=== PATIENT | female | born 1940 | race Caucasian/White ===

== ENCOUNTER 2020-03-21 07:57 | Day surgery (SDC) | payer MEDICARE ==
[~2020-03-21] VITALS: Ht 162.6 cm; Wt 77.3 kg
[~2020-03-21 07:57] MED LIST: ACETAMINOPHEN500 MG PO; BUSPIRONE HCL5 MG PO; ESTRADIOL-NORE1 EACH PO; FENOFIBRATE145 MG PO; HYDROCHLOROTHIA25 MG PO; LISINOPRIL20 MG PO; METOPROLOL TART50 MG PO; NORVASC10 MG PO; OXYCODON-ACETA1 EAC2 PO; ZOLPIDEM TARTRA10 MG PO
--- NOTE | 2020-03-21 10:15 | NUR ---
03/21/20 1015 Sheets,Brigette 0957 PT ARRIVED TO PACU ON 10L VIA MASK. PT REACTIVE TO TACTILE STIMULI AND RESP EVEN AND UNLABORED. PT REPORTS PAIN IS TOLERABLE AT THIS TIME. 1002 O2 REMOVED, PT SITTING IN HIGH FOWLERS AND TALKING TO RN OFF AND ON. 1013 MD AT BEDSIDE TALKING TO PT. PT RESTING IN BED WITH EYES CLOSED. NO MOANING OR GRIMACING NOTED, PT RATES PAIN 4/10 AND TOLERABLE.
--- NOTE | 2020-03-21 11:00 | NUR ---
PT DROWSY IN ROOM.
--- NOTE | 2020-03-21 12:39 | NUR ---
PATIENT AMBULATED TO BATHROOM, STEADY ON FEET. REPORTS PAIN 3/10 AND TOLERABLE AFTER ADMINISTRATION OF PAIN MEDICATION. PATIENT VOIDED 900 ML OF CLEAR YELLOW URINE. PATIENT BACK TO ROOM, PROVIDED WARM BLANKET AND CRACKERS. CALLL LIGHT WITHIN REACH. NO OTHER NEEDS AT THIS TIME.
--- NOTE | 2020-03-21 13:19 | NUR ---
1210: PATIENT TOLERATED JELLO. MEDICATED FOR PAIN WITH 1 TAB OF PERCOCET. VS CHECKED. PATIENT GIVEN CRACKERS TO EAT. AT BEDSIDE. CALL LIGHT WITHIN REACH.
--- NOTE | 2020-03-21 13:21 | NUR ---
1310: PATIENT RESTING. VS CHECKED. NO OTHER NEEDS AT THIS TIME. AT BEDSIDE. CALL LIGHT WITHIN REACH.
--- NOTE | 2020-03-21 14:24 | NUR ---
CHECK PATIENT. PATIENT AWAKENED WITH RN ENTERING ROOM. PATIENT STATES READY TO GO HOME. DISCHARGE INSTRUCTIONS GIVEN TO PATIENT AND . IV DC'D WNL. TIP INTACT. DRESSING APPLIED. PATIENT ASSISTED OOB. GAIT STEADY. PATIENT GETTING DRESSED WITH HELP FROM .
--- NOTE | 2020-03-21 14:36 | NUR ---
1430: PATIENT DISCHARGED TO HOME VIA WHEELCHAIR WITH .
--- NOTE | 2020-03-23 11:27 | OR ---
[facility] [address], [place] [address] Signed DATE OF OPERATION: 03/21/2020 SURGEON: Smita Curry MD PREOPERATIVE DIAGNOSIS: Positive pathologic margin on left breast, prior partial mastectomy on February 13, 2020. POSTOPERATIVE DIAGNOSIS: Positive pathologic margin on left breast, prior partial mastectomy on February 13, 2020. PROCEDURE: 1. Partial mastectomy left upper outer quadrant breast with clinically negative margins. 2. Excision of redundant skin for cosmetic closure. ANESTHESIA: General, LMA, Smita Panda CRNA INDICATIONS: This 79-year-old white woman is a patient of Dr. Joey Ferguson and underwent bilateral breast cancer surgery by id on February 13, 2020. This included partial mastectomy on the left side, sentinel lymph node biopsy and partial mastectomy on the right side with axillary exploration. Notably, she has undergone complete axillary dissection in the past related to melanoma. She was found to have both lobular carcinoma, ductal carcinoma, and carcinoma in situ of both varieties. The left breast had a positive margin as noted by Dr. Cotton. Consideration is made for providing a pathologically negative margin for re-excision. The cosmetic result following initial operation was quite good. She has seen Dr. Vargas and Dr. Felipe. Radiation therapy is anticipated. Oncotype DX testing has been initiated. She is admitted at this time to undergo re-excision of the biopsy site based on the pathologically positive margin. She understands as does her the risks of bleeding, infection, cosmetic deformity, and so forth. She understands and she wished to proceed. FINDINGS: The breast parenchyma had been reapproximated at the initial operation. Wide excision was undertaken to include a clinically negative margin, which included re-excision of the skin incision itself on the left lateral aspect of the breast as well as breast parenchyma dominantly in the lateral and superolateral aspect. Dissection was taken down to the pectoralis fascia. This specimen was marked with a short stitch in the Electronically Signed By: SMITA CURRY MD 03/23/20 1127 PATIENT NAME: BRIAN MELENDEZ OPERATIVE REPORT DATE OF : 40 REPORT #: [id number] PHYSICIAN: SMITA CURRY MD PCP: JOEY FERGUSON MD REPORT IS CONFIDENTIAL AND NOT TO BE RELEASED WITHOUT AUTHORIZATION [facility] [address] [place] [id number] Signed superior deep margin and a long stitch in the lateral margin and a double stitch in the deepest margin near the pectoralis. Parenchymal reapproximation was undertaken and due to distortion of skin and so forth, redundant skin was excised to provide most optimal cosmetic appearance. Though there is flattening in the lateral aspect of the breast, it is cosmetically acceptable and should heal well. DESCRIPTION OF PROCEDURE: The patient was brought to the operating room, given a general anesthetic by LMA technique. Preoperative antibiotic Ancef was given. Sequential compression device stockings used and heparin subcutaneously administered. The left breast was prepared with a chlorhexidine solution as was the axilla. The two incisions from the prior surgery were well healed. Firmness of the parenchyma of the breast was noted as we were four weeks since initial operation. An elliptical incision was taken of the scar in the lateral aspect of the breast. Dissection carried through the dermis with electrocautery. The parenchyma which was bulky and represented the previous excision cavity was carefully freed from the surrounding normal breast parenchyma providing for a complete and total excision of the prior excision with at least a 1 cm or more margin of breast parenchyma around it. Meticulous care was taken to provide good hemostasis. Dissection was carried in a superior and deep dissection predominantly and once excised, the specimen was marked with a short stitch in the superior-deep margin and a long stitch in the lateral margin and a double stitch in the deepest margin near the pectoralis. This was passed for permanent pathology. Irrigation was undertaken with sterile water. Electrocautery was used for hemostasis. The approximation of the breast parenchyma and some residual axillary tail of Long was undertaken with interrupted 2-0 Vicryl suture obliterating the space. As is typical, this caused some dimpling in the lateral aspect of the skin. Reapproximation of the deep dermis and interrupted 2-0 Vicryl was undertaken in the superior aspect and dog-ear type skin defects were noted. These were sequentially excised allowing for more cosmetic closure. The skin was then closed with a running subcuticular 3-0 Vicryl. Steri-Strips were applied as was a silver sponge dressing. ESTIMATED BLOOD LOSS: Estimated at less than 20 mL in aggregate. COUNTS: Sponge, needle, and counts reported as correct x3. Smita Curry MD Electronically Signed By: SMITA CURRY MD 03/23/20 1127 PATIENT NAME: BRIAN MELENDEZ OPERATIVE REPORT DATE OF : 40 REPORT #: [id number] PHYSICIAN: SMITA CURRY MD PCP: JOEY FERGUSON MD REPORT IS CONFIDENTIAL AND NOT TO BE RELEASED WITHOUT AUTHORIZATION [address] [place] [address] Signed /MODL /[id number] cc: MD Joey Millard MD Juno Choe, MD, PH.D. Copies: FABIOLA FELIPE MD, KEVIN R MD CHOE, JUNO ~ Electronically Signed By: SMITA CURRY MD 03/23/20 1127 PATIENT NAME: BRIAN MELENDEZ OPERATIVE REPORT DATE OF : 40 REPORT #: [id number] PHYSICIAN: SMITA CURRY MD PCP: JOEY FERGUSON MD REPORT IS CONFIDENTIAL AND NOT TO BE RELEASED WITHOUT AUTHORIZATION
--- NOTE | 2020-03-28 12:31 | PATH ---
[facility] [address] [place], [place] [address] Signed SPECIMEN(S): A LEFT BREAST SPECIMEN(S): B ADDITIONAL SKIN AND BREAST SPECIMEN SOURCE: A. LEFT BREAST B. ADDITIONAL SKIN AND BREAST CLINICAL HISTORY: Infiltrating duct carcinoma of bilateral breasts FINAL PATHOLOGIC DIAGNOSIS: A. Breast, left, lumpectomy cavity, re-excision: - Negative for residual carcinoma. - Focal atypical ductal hyperplasia (ADH). - Atypical lobular hyperplasia (ALH). - Microcalcifications associated with non-neoplastic breast tissue. - Fibrocystic changes including stromal fibrosis, usual ductal hyperplasia, apocrine metaplasia, adenosis, and cyst formation. - Postsurgical site changes. B. "Additional skin plus breast", excision: - Benign breast tissue with fibrocystic changes. - Subcutaneous tissue with foci of fat necrosis and scar formation. - Skin with focal seborrheic keratosis. - No evidence of malignancy. COMMENT: Regarding specimen A: The specimen was entirely submitted and histologically examined. There is no residual carcinoma identified. As part of [employer] Quality Improvement Program, selected slides of this case were reviewed by other members of our pathology staff. NAL:cml:C1NR MICROSCOPIC EXAMINATION: Histologic sections of all submitted blocks are examined by light microscopy. The focal atypical ductal hyperplasia is characterized by s a single expanded duct with monomorphic cells and cribriforming, measuring less than 1 mm in greatest dimension. Immunohistochemical stains (with appropriately staining controls) were performed. E-cadherin demonstrates loss of membranous reactivity in the areas of atypical lobular hyperplasia, confirming the classification as such. S[facility] on a section adjacent to the lumpectomy cavity supports the absence PATIENT NAME: BRIAN MELENDEZ PATHOLOGY DATE OF : 40 REPORT #: [id number] PHYSICIAN: JOVANA SHOOK PCP: JOEY ZAIDI MD REPORT IS CONFIDENTIAL AND NOT TO BE RELEASED WITHOUT AUTHORIZATION [facility] [address] [place] [address] Signed of invasive carcinoma. These findings, together with the gross examination, support the pathologic diagnosis. GROSS DESCRIPTION: Two specimens are received in two containers, labeled "PL." A. The specimen, labeled "PL, A," and designated on the requisition "re-excision left breast partial mastectomy site; infiltrating duct carcinoma of bilateral breast, short stitch superior deep margin, long stitch lateral, double stitch deepest margin," is received in formalin and consists of an 89 g, 8.4 x 5.8 x 4.1 cm, yellow, lobulated lumpectomy specimen that is oriented with a long stitch indicating lateral, short stitch indicating superior deep, and a double stitch indicating "deepest". On the anterior surface of the specimen is a lemus, wrinkled, grossly unremarkable, 4.6 x 1.7 cm skin ellipse. The specimen is inked as follows: Superior = blue; inferior = green; anterior = skin; deep = black; medial = red; lateral = orange. The specimen is sectioned from the end with the suture designated superior deep to the opposing end (inferior anterior) into 17 slices to reveal an ill-defined, centrally located, 3.8 x 2.4 x 1.8 cm cavity containing clear yellow gelatinous material that is 0.6 cm from the medial margin, 0.9 cm from the deep margin 1.0 cm from the superior margin, 1.0 cm from the inferior margin, 1.2 cm from the lateral margin, and 3.2 cm from the skin. The cavity is surrounded by fibrous spiculations extending up to 2.0 cm from the cavity. The fibrous spiculations grossly appear to involve the superior, medial, inferior margins. The fibrous spiculations are 0.2 cm from the posterior margin, 0.2 cm from the lateral margin, and 0.3 cm to the skin. Additionally the tissue surrounding the cavity has multiple ill-defined, lemus-white chalky areas consistent with fat necrosis. Abutting the cavity, within slice one and two, is an ill-defined, lemus-white, indurated, 1.7 x 0.9 x 0.9 cm area that appears to involve the superior, and deep margin. The area is 1.9 cm from the medial margin, 2.5 cm from the lateral margin, 4.2 cm from the inferior margin, and 5.6 cm from the skin. The remaining fibrofatty tissue is approximately 10% comprised of fibroglandular tissue. An additional discrete mass/lesion is not grossly identified. The specimen is submitted entirely as follows: A1-A7 superior deep end perpendicularly sectioned (note: A1-A3 containing the indurated fibrous area) A8-A17 cross-sectioned slice 2 (A8-A11 containing the indurated fibrous PATIENT NAME: BRIAN MELENDEZ PATHOLOGY DATE OF : 40 REPORT #: [id number] PHYSICIAN: JOVANA SHOOK PCP: JOEY ZAIDI MD REPORT IS CONFIDENTIAL AND NOT TO BE RELEASED WITHOUT AUTHORIZATION [address] [address] Signed area; A8-A9, A10-A11, A12-A13, A14-A15,A16-A17 are bivalved cross-sections) A18-A22 cross-sectioned slice 3 A23-A29 cross-sectioned slice 4 (A28-A29 is a bivalved section) A30-A36 cross-sectioned slice 5 (A30-A31 is a bivalved cross-section) A37-A47 cross-sectioned slice 6 (A37-A38,A40-A41,A42-A43,A45-A46 are bivalved cross-sections) A48-A52 cross-sectioned slice 7 (note: The slice is without medial margin due to poor sectioning, please see medial margin from six and eight for nearest medial margin; A48-A49 is a bivalved cross-section) A53-A59 cross-sectioned slice 8 (A53-A54, A58-A59 are bivalved cross-sections) A60-A65 cross-sectioned slice 9 (A61,A63, A64-A65 are bivalved cross-sections) A66-A71 cross-sectioned slice 10 (A70-A71 is a bivalved cross-section) A72-A79 cross-sectioned slice 11 (A73-A74,A78-A79 are bivalved cross-sections) A80-A87 cross-sectioned slice 12 (A80-A81, A82-A83,A84-A85, A86-A87 are bivalved cross-sections) A88-A95 cross-sectioned slice 13 (A88-A89, A90-A91, A92-A93, A94-A95 are bivalved cross-sections) G71-L089 cross-sectioned slice 14 (A96-A97, A98-A99, O755-S244 are bivalved cross-sections) B052-P119 bisected slice 15 (C656-E149 is a bivalved cross-section;X731-V698 is a trivalved cross-sectioned) C225-B852 bisected slice 16 (L507-V391, N128-U843 are bivalved cross-sections) G800-J468 superior anterior end perpendicularly sectioned Cold ischemic time: 10 minutes Formalin fixation time: Approximately 27 hours B. The specimen, labeled "PL, B," and designated on the requisition "additional skin + breast," is received in formalin and consists of 2 irregularly-shaped, undesignated, oriented fibrofatty tissue pieces with overlying skin segments. The first is 4.2 x 3.3 x 1.1 cm and the resection margin is blue. The overlying segment of skin is wrinkled irregularly-shaped, lemus, 4.1 x 3.2 cm and has one 0.2 x 0.2 by less than 0.1 cm, levy-lemus macule lesion that is 0.4 cm from the nearest peripheral skin margin. The segment is cross-sectioned to reveal yellow fibrofatty and elmus-white fibroglandular tissue. Fibroglandular tissue comprises PATIENT NAME: BRIAN MELENDEZ PATHOLOGY DATE OF : 40 REPORT #: [id number] PHYSICIAN: JOVANA SHOOK PCP: JOEY ZAIDI MD REPORT IS CONFIDENTIAL AND NOT TO BE RELEASED WITHOUT AUTHORIZATION [address] [address] Signed approximately 5% of the parenchyma. A discrete mass/lesion is not grossly identified. The skin macular lesion does not grossly appear to invade past the skin surface. The second is 4.1 x 2.5 x 2.0 cm and the resection margin is black. The overlying skin segment is 4.1 x 2.4 cm, irregularly-shaped, lemus, wrinkled, and grossly unremarkable. The segment is cross-sectioned to reveal yellow fibrofatty and lemus-white fibroglandular tissue. Fibroglandular tissue comprises less than 5% of the parenchyma. A discrete mass/lesion is not grossly identified. Elevators Inspector sections are submitted as follows: B1-B3 first skin segment B4-B6 second skin segment Cold ischemic time: 10 minutes Formalin fixation time: Approximately 27 hours AI (under the direct supervision of a pathologist) The Gross Description was prepared using a voice recognition system. The report was reviewed for accuracy; however, sound-alike word errors, addition and/or deletions may occur. If there is any question about this report, please contact Client Services. PERFORMING LABORATORY: The technical component was performed by [employer], [address] [place] [id number] (Senior Research Manager: Rosanna Arciniega MD; CLIA# [id number]). [facility], [address] [place] [address] (CLIA# [id number]). Diagnostician: Mary Cotton MD Pathologist Electronically Signed 03/28/2020 Copies: ~ PATIENT NAME: BRIAN MELENDEZ PATHOLOGY DATE OF : 40 REPORT #: [id number] PHYSICIAN: JOVANA PATHOLOGY PCP: JOEY ZAIDI MD REPORT IS CONFIDENTIAL AND NOT TO BE RELEASED WITHOUT AUTHORIZATION
== END 2020-03-21 14:30 | disposition home or self-care (01) ==
LOC: DS 07:57
PROVIDERS: ATTEND Surgery
PROC: 0HBU0ZZ Excision of Left Breast, Open Approach (ICD-10-PCS; principal; 2020-03-21 10:00)
DX: C50.512 Malignant neoplasm of lower-outer quadrant of left female breast (principal); C50.911 Malignant neoplasm of unspecified site of right female breast; I10 Essential (primary) hypertension; G47.33 Obstructive sleep apnea (adult) (pediatric); K21.9 Gastro-esophageal reflux disease without esophagitis; N60.92 Unspecified benign mammary dysplasia of left breast; L82.1 Other seborrheic keratosis; Z17.0 Estrogen receptor positive status [ER+]; Z98.890 Other specified postprocedural states; Z87.891 Personal history of nicotine dependence; Z91.048 Other nonmedicinal substance allergy status; Z79.82 Long term (current) use of aspirin
CPT/HCPCS: 00404; 88305; 88307; J0131; J0690; J1100; J1644; J1885; J2250; J2405; J2704; J2765; J3010; J7121

== ENCOUNTER 2020-06-27 05:37 | Observation (INO) | payer MEDICARE ==
[~2020-06-27] VITALS: Ht 162.6 cm; Wt 76.0 kg
--- NOTE | 2020-06-27 10:25 | NUR ---
06/27/20 Ras5 Soila Tony 1020- PT ARRIVES TO PACU NONAROUSABLE TO NOXIOUS STIMULI WITH AN OPA IN PLACE. RESP EVEN AND UNLABORED. OXYGEN SAT HIGH 90'S TO 100% ON 6L VIA MASK. PT IS OBSTRUCTING SLIGHTLY. JAW THRUST BEING DONE. CLEARS AIRWAY.
--- NOTE | 2020-06-27 11:45 | NUR ---
PATIENT ARRIVED VIA STRETCHER FROM PACU AND REPORT RECEIVED FROM RN. PT. IS ALERT AND ORIENTED. SHE DENIES PAIN AT THIS TIME. CMS INTACT. MIDLINE ACTICOAT DRESSING IS INTACT WITH A SMALL AMOUNT OF SERISANGUINOUS DRAINAGE. BOWEL TONES ACTIVE AND ABD. SOFT. PT. TOLERATING SIPS OF WATER AND DENIES NAUSEA. LUNGS CLEAR. IV SITE WNL AND LR ADMIN AT 85/ML HR. AT BEDSIDE. DISCUSSED SAFETY, POC AND PAIN MANAGEMENT. PT. LEFT RESTING WITH CALL LIGHT IN REACH.
--- NOTE | 2020-06-27 12:45 | NUR ---
PATIENT ALERT AND ORIENTED AND DENIES PAIN. TOLERATING WATER AND PUDDING. NOT VERY HUNGRY AT THIS TIME. MIDLINE ACTICOAT DRESSING IS INTACT WITH A SMALL AMOUNT OF NEW BLOOD DRAINAGE AT THE BOTTOM OF THE DRESSING. PT. DENIES NAUSEA. ABD. SOFT AND BOWEL TONES ACTIVE. VITALS STABLE. PT. LEFT RESTING IN BED WITH CALL LIGHT IN REACH.
--- NOTE | 2020-06-27 13:45 | NUR ---
PATIENT ALERT AND ORIENTED. VITALS STABLE. MIDLINE ACTICOAT DRESSING IS INTACT WITH A SMALL AMOUNT SANGUINOUS DRAINAGE. ABD. SOFT AND BOWEL TONES ACTIVE. PATIENT REPORTS PAIN IS TOLERABLE AND MILD AFTER EARLIER PERCOCET. ALVA EMPTIED OF 675ML CLEAR YELLOW URINE. PT. LEFT RESTING IN BED WITH AT BEDSIDE.
--- NOTE | 2020-06-27 15:00 | NUR ---
PATIENT STATES ABD. PAIN IS TOLERABLE AND DENIES NAUSEA. VITALS STABLE. ABD. MIDLINE DRESSING IS INTACT WITH A SMALL AMOUNT OF SANGUINOUS DRAINAGE. ABD. SOFT AND MILDLY DISTENDED. BOWEL TONES ACTIVE. PT. ORDERED DINNER. LEFT RESTING WITH HER AT BEDSIDE.
--- NOTE | 2020-06-27 16:21 | NUR ---
PATIENT IS HERE FOR A LAPAROTOMY FOR EXCISION OF RIGHT ABD. MASS. VITALS STABLE. ALVA IN PLACE AND PATENT. VOIDING QS. ABD MIDLINE HAS ACTICOAT DRESSING WITH STERISTRIPS. DRESSING INTACT WITH SMALL AMOUNT OF SANGUINOUS DRAINAGE. PATIENT HAS HAD PERCOCET 1X FOR ABD PAIN. IV SITE FLUSHES WELL AND LR RUNNING AT 85ML/HR. PT. IS ALERT AND ORIENTED. LUNGS CLEAR AND BOWEL TONES ACTIVE. ENCOURAGE PT. TO AMBULATE.
--- NOTE | 2020-06-27 16:45 | NUR ---
ROUNDING ON PT. PT. STATES SHE IS HAVING MINIMAL PAIN AND IS CURRENTLY READING IN BED. DISCUSSED AMBULATING AFTER DINNER AND SHE AGREED.
--- NOTE | 2020-06-27 20:26 | NUR ---
pt awake, pleasnt, answera and has appropiate questions, answered to her satisfaction. On room air, lungs clear bilat, midline abd with Acticot dressing in plac with minimum of ss drainage top of dressing. MATHEUS. scds in place, trace of edema at ankles, f/c patent, draining clear yellow urine, tolerated diet and fluids well. IVF infusing L arsm. R arm restricted from previous mastectomy. no c/o pain at this time, CPOX in place.
--- NOTE | 2020-06-27 23:23 | NUR ---
PT MEDICATED WITH 1 NORCO C/O 06/15 ABD PAIN. READY FOR BED, REPOSITIONS SELF. ABD DRESSING W/O CHANGES. HOME CPAP CLEARED BY RT EARLIER. PT USING AT THIS TIME. TOLERATING LIQUIDS WELL, NO EMESIS
--- NOTE | 2020-06-28 01:02 | NUR ---
RESTING, USING CPAP, EYES CLOSED, ON AEROSOL PRECAUTIONS. NO DISTRESS NOTED, IVF INFUSING. SDCS IN PLACE. CALL LIGHT AND FLUIDS AT BEDSIDE
--- NOTE | 2020-06-28 02:45 | NUR ---
IN TO GET VITALS, ICE WATER FILLED, NO FURTHER NEEDS
--- NOTE | 2020-06-28 03:32 | NUR ---
using CPAP, denies c/o pain, abd dressing with old drainage on top, HEA, pt unsure if she is passing gas. denies abd pain, tolerating fluids well. call light and scds
--- NOTE | 2020-06-28 05:31 | NUR ---
Used home CPAP this shift. coop with vitals and lab draws. midline abd incision with Acticot dressing in place. old drainage top of dressing, HEA, pt unsure if she is passing gas. was medicated x1 per abd pain with [place] 7.5mg po x1 tab, effective. F/c to be dc'd in a few minutes as per MD orders, draining QS yellow urine, scds in place. IVF infusing w/o problems. Pleasant and coop. tolerating fluids well.
--- NOTE | 2020-06-28 05:55 | NUR ---
f/c dc'd at 0545. tip intat 9cc water balloon deflated. Procedure explained, ct coop. Pt dangled at edge of bed, tolerated well. Up out of bed and walked alongise bed, and back to bed w 2 person assist, tolerated well, declined need ofr pain meds. tolerating fluids well, scds on. Bed alarm on.
--- NOTE | 2020-06-28 06:58 | NUR ---
Pt up to br, voided, 1 pa, tolerated well, back to bed
--- NOTE | 2020-06-28 07:06 | NUR ---
patient resting in bed as this car bracer entered room. sba to bathroom. patient tolerated well. back to bed. warm blanket provided. call light in reach. denies any futher needs.
[2020-06-28] MEDS ORDERED: OXYCODON-ACETA1 EAC2 PO (08:54)
[2020-06-28] MEDS ORDERED: ACETAMINOPHEN500 MG PO (08:54)
--- NOTE | 2020-06-28 08:59 | NUR ---
AM medications administered. States Dr. Sorenson has been in and told her he will be discharging her home today. Assessment completed. Denies pain at this time.
[2020-06-28] MEDS ORDERED: BENADRYL25 MG PO (09:23)
[2020-06-28] MEDS ORDERED: SUDOGEST30 MG PO (09:23)
[2020-06-28] MEDS ORDERED: VITAMIN B-121000 MCG PO (09:24)
[2020-06-28] MEDS ORDERED: VITAMIN D325 MCG PO (09:24)
[2020-06-28] MEDS ORDERED: BIOTIN5 M1 PO (09:24)
[2020-06-28] MEDS ORDERED: CINNAMON500 MG PO (09:24)
--- NOTE | 2020-06-28 09:25 | NUR ---
MED REC COMPLETE
--- NOTE | 2020-06-28 09:39 | NUR ---
Informed by Dai, director industrial nursing, while patient is talking to pharmacist, states she took her morning home meds. Pharmacist spoke to patient about taking medications not ordered while in hospital.
--- NOTE | 2020-06-28 09:54 | NUR ---
PATIENT AWAKE IN BED, IN ROOM. VITALS AND I&OS CHARTED. CALL LIGHT IN REACH
--- NOTE | 2020-06-28 10:00 | NUR ---
SPOKE WITH PATIENT AND IN ROOM. SHE IS BEING DISCHARGED SHE STATES AND IS DRIVING HOME. PATIENT IS RETIRED, DRIVES, ACTIVE. USES NO DME. DOES HAVE CANE, CRUTCHES AND GRAB BARS IN BATHROOM. SHE DOES NOT THINK SHE NEEDS ANYTHING TO GO HOME SAFELY. NO BARRIERS TO DISCHARGE AT THIS TIME.
--- NOTE | 2020-06-28 10:25 | NUR ---
Discharge instructions given. Verbalizes understanding.
--- NOTE | 2020-06-30 12:21 | OR ---
[facility] [address] [place], [place] [address] Signed DATE OF OPERATION: 06/27/2020 SURGEON: Smita Curry MD PREOPERATIVE DIAGNOSES: 1. Right large retroperitoneal mass cephalad to iliac crest. 2. History of melanoma and history of breast cancer. PROCEDURE: Laparotomy with excision of large right retroperitoneal mass (8 cm).... prolonged, complicated, difficult). ANESTHESIA: General endotracheal; Norma Nhi, PUBLIC HEALTH WORKER and TAP block bilateral. INDICATION: This 80-year-old white woman is a patient of Dr. Joey Pascual, well known to me from the past. She recently underwent treatment for breast cancer including partial mastectomy, sentinel lymph node biopsy, and so forth. She is not known to have distant metastatic disease from breast cancer. Additionally, she has undergone resection of posterior thoracic melanoma with sentinel lymph node biopsy and ultimately axillary dissection. She was found by Dr. Ferguson, her primary care provider to have a palpable mass in the lower aspect of the right abdomen just above the iliac crest. A CT scan has been performed which showed a highly vascular mass in the retroperitoneum with some vascular pedicles from the iliac system. It does not appear contiguous with the artery nor the ureter nor the colon. It is considered likely to represent metastatic disease from melanoma or breast cancer. She has no known metastatic disease elsewhere and initial CT scan showed possibility of bony metastasis to the pelvis so that is uncertain at this time. She is admitted at this time to undergo resection of the retroperitoneal mass for diagnosis and tumor control. She understands well the risks of bleeding, infection, need for abbreviated procedure considering its vascular nature, and other unforeseen complications and wishes to proceed. FINDINGS: Indeed the mass was retroperitoneal. It was not contiguous particularly with the iliac artery or vein, but it did have significant branches corresponding to it. It did not appear to be ureteral mass and most likely represents malignancy. It was not highly pigmented. It was firm and rubbery and of variable pigmentation, but not deeply pigmented. Complete excision was undertaken with no residual mass so far as can be told. The peritoneal lining was reapproximated over it so as to avoid postoperative Electronically Signed By: SMITA CURRY MD 06/30/20 1221 PATIENT NAME: BRIAN MELENDEZ OPERATIVE REPORT DATE OF : 40 REPORT #: [id number] PHYSICIAN: SMITA CURRY MD PCP: JOEY FERGUSON MD REPORT IS CONFIDENTIAL AND NOT TO BE RELEASED WITHOUT AUTHORIZATION [facility] [address], [place] [address] Signed adhesion formation. DESCRIPTION OF PROCEDURE: The patient was brought to the operating room, given a general endotracheal anesthetic. A [place] catheter was placed. Preoperative antibiotic Ancef was given. Sequential compressive device stockings were used. A CT scan was available for review during the course of the procedure. The abdomen was prepared with a chlorhexidine solution and draped sterilely. An incision was made cephalad and inferior to the umbilicus. Dissection carried down to the symphysis pubis. Subcutaneous tissue was with electrocautery and the midline fascia was incised for entry to the abdomen. There was no sign of ascites or carcinomatosis. Examination showed a palpable firm mass in the retroperitoneum on the right side at about the level of the iliac crest. The Bookwalter retractor was affixed to the table and the bowel and other intraabdominal contents were collected medially. Directly over the mass, peritoneum was incised and initially using blunt and minimal loss of electrocautery, dissection was carried into the retroperitoneum identifying the mass. It had a smooth texture to it and was semi mobile. It was not fully mobile however. Dissection began in the superior aspect and using blunt and electrocautery dissection, it was dissected free. There were many small vessels that required small clips and cautery as necessary for control. Careful manipulation laterally was undertaken, but it was clear that there was no specific direction for which dissection would be most effective. All sides including the medial aspect were at one time or another dissected free with meticulous care, securing small blood vessels with clips and inferiorly, a large vascular pedicle secured with 0 silk tie and larger clips. Continuous blunt and electrocautery dissection was undertaken ultimately getting to the posterior aspect of the mass. This was from the retroperitoneum with blunt dissection causing no injury to the surrounding structures. Areas that would start to ooze were packed with gauze and attention turned towards other areas. Ultimately, the mass was entirely excised. It was measured on the back table and was found to be approximately 8 cm. Minimal amount of electrocautery was then used in the retroperitoneum for punctate bleeding sites. Tisseel (fibrin glue) was later applied to the retroperitoneal area. The peritoneum was reapproximated with interrupted 2-0 Vicryl suture. Photographs were taken throughout the procedure. There was no evidence of ongoing bleeding or other problems. Attention was turned towards closure. The small bowel was returned to its natural anatomic configuration as was the colon and the omentum covered over the abdominal viscera. Midline fascia was reapproximated with running bidirectional #1 PDS suture. Subcutaneous tissue was irrigated and skin was closed with running subcuticular 3-0 Vicryl. Steri-Strips were applied as was a silver sponge dressing. The patient tolerated procedure well. Blood loss was estimated about 50 mL in aggregate. Sponge, needle and instrument counts reported as correct x3. The operation was prolonged, complicated, and difficult on the Electronically Signed By: SMITA CURRY MD 06/30/20 1221 PATIENT NAME: BRIAN MELENDEZ OPERATIVE REPORT DATE OF : 40 REPORT #: [id number] PHYSICIAN: SMITA CURRY MD PCP: JOEY FERGUSON MD REPORT IS CONFIDENTIAL AND NOT TO BE RELEASED WITHOUT AUTHORIZATION [facility] [address] [place] [id number] Signed basis of its location, it is high level of vascularity and so forth, but it was accomplished safely with acceptable blood loss. MD MITRA Starr/MODL /[id number] cc: MD Rehan Patten MD Juno Choe, MD, PH.D. Copies: JOEY FERGUSON MD, ROBERT C MD CHOE, JUNO ~ Electronically Signed By: SMITA CURRY MD 06/30/20 1221 PATIENT NAME: BRIAN MELENDEZ OPERATIVE REPORT DATE OF : 40 REPORT #: [id number] PHYSICIAN: SMITA CURRY MD PCP: JOEY FERGUSON MD REPORT IS CONFIDENTIAL AND NOT TO BE RELEASED WITHOUT AUTHORIZATION
--- NOTE | 2020-07-04 18:10 | PATH ---
[facility] [address] [place], [place] [address] Signed SPECIMEN(S): A RETROPERITONEAL MASS SPECIMEN SOURCE: A. RETROPERITONEAL MASS CLINICAL HISTORY: Excision of right abdominal/pelvic mass; history of malignant melanoma, history of neoplasm of breast. 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 - Focally present at surgical margin. - See Comment. COMMENT: Sections demonstrate a multinodular, well-circumscribed cellular tumor comprised of bland spindle cells with prominent background vasculature, "staghorn"-like vessels, and interspersed areas of fibrotic stroma. No hemorrhage or tumor necrosis identified. 2 mitoses were counted per 10 hpf. Immunohistochemical stains (with appropriately staining controls) were performed. The tumor cells are positive for STAT6 and CD34 (strong, diffuse) but negative for pancytokeratin (AE1/AE3), desmin, S100, Melan-A, and CD31. SMA shows very faint, scattered tumor cell positivity. The combined morphologic and immunophenotypic profile is consistent with solitary fibrous tumor. As part of [facility]' Quality Improvement Program, this case was reviewed by another member of our pathology staff. NAL:cml:C CLARISA MICROSCOPIC EXAMINATION: Histologic sections of all submitted blocks are examined by light microscopy. These findings, together with the gross examination, support the pathologic diagnosis. GROSS DESCRIPTION: The specimen, labeled "PL, retroperitoneal mass," is received in formalin and consists of one pink-lemus, firm, focally congested, lobulated tissue fragment that measures 6.5 x 5.5 x 3.0 cm. Specimen is inked. Sectioning through the specimen reveals a levy-pink, nodular, firm PATIENT NAME: BRIAN MELENDEZ PATHOLOGY DATE OF : 40 REPORT #: [id number] PHYSICIAN: JOVANA SHOOK PCP: JOEY ZAIDI MD REPORT IS CONFIDENTIAL AND NOT TO BE RELEASED WITHOUT AUTHORIZATION [facility] [address] [place], [place] [address] Signed tissue. [employer] Associate sections are submitted in cassettes (A1-A7). JS (under the direct supervision of a pathologist) The Gross Description was prepared using a voice recognition system. The report was reviewed for accuracy; however, sound-alike word errors, addition and/or deletions may occur. If there is any question about this report, please contact Client Services. ADDITIONAL NOTES: Immunohistochemical and/or in situ hybridization studies were performed on this case with the appropriate positive controls that react as expected. This test was developed and its performance characteristics determined by [facility]. It has not been cleared or approved by the U.S. Food and Drug Administration. The FDA has determined that such clearance or approval is not necessary. This test is used for clinical purposes. It should not be regarded as investigational or for research. [facility] is certified under the Clinical Laboratory Improvement Amendments of 1988 (CLIA) as qualified to perform high complexity clinical laboratory testing. This assay has not been validated for specimens that have been decalcified. PERFORMING LABORATORY: The technical component was performed by [facility], [address] [place] [id number] (Brusher Hand: Rosanna Arciniega MD; CLIA# [id number]). [facility] interpretation was performed by [facility], [address] [address] (CLIA# [id number]). Diagnostician: Mary Cotton MD Pathologist Electronically Signed 07/04/2020 Copies: ~ PATIENT NAME: BRIAN MELENDEZ PATHOLOGY DATE OF : 40 REPORT #: [id number] PHYSICIAN: JOVANA SHOOK PCP: JOEY ZAIDI MD REPORT IS CONFIDENTIAL AND NOT TO BE RELEASED WITHOUT AUTHORIZATION
== END 2020-06-28 10:40 | disposition home or self-care (01) ==
LOC: DS 05:37 → MS 10:36
PROVIDERS: ADMIT Surgery; ATTEND Surgery
PROC: 0WBH0ZX Excision of Retroperitoneum, Open Approach, Diagnostic (ICD-10-PCS; principal; 2020-06-27 06:45)
DX: D49.0 Neoplasm of unspecified behavior of digestive system (principal); G89.18 Other acute postprocedural pain; I10 Essential (primary) hypertension; G47.30 Sleep apnea, unspecified; M19.09 Primary osteoarthritis, other specified site; K21.9 Gastro-esophageal reflux disease without esophagitis; Z85.820 Personal history of malignant melanoma of skin; Z85.3 Personal history of malignant neoplasm of breast; Z79.82 Long term (current) use of aspirin; Z96.643 Presence of artificial hip joint, bilateral; Z88.6 Allergy status to analgesic agent; Z88.0 Allergy status to penicillin; Z88.8 Allergy status to other drugs, medicaments and biological substances; Z91.048 Other nonmedicinal substance allergy status; Z87.891 Personal history of nicotine dependence
CPT/HCPCS: 00790; 36415; 64488; 76942; 85025; 88305; 96372; 96374; 96376; G0378; J0131; J0330; J0690; J1100; J1644; J1885; J2001; J2250; J2405; J2704; J2795; J3475; J7121

== ENCOUNTER 2021-02-14 05:45 | Day surgery (SDC) | payer MEDICARE ==
[~2021-02-14] VITALS: Ht 162.6 cm; Wt 74.0 kg
--- NOTE | ~2021-02-14 | OR ---
[facility] [address] [place] [place], [place] [address] Draft DATE OF OPERATION: 02/14/2021 SURGEON: Alma Ochoa MD PREOPERATIVE DIAGNOSES: YASMIN Pap smear, endometrial mass on ultrasound. POSTOPERATIVE DIAGNOSES: YASMIN Pap smear, endometrial mass on ultrasound pending pathology with cervical stenosis. ANESTHESIA: MAC. PROCEDURE: Hysteroscopy, D and C, resection of polyps. ESTIMATED BLOOD LOSS: 20 mL. DRAINS: None. 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 Pap smear was done given her history as well as the new history that she is now exposed female and the Pap smear revealed an YASMIN Pap smear favor neoplasia. Ultrasound was done, which revealed an endometrial mass. At the time of surgery, exam under anesthesia revealed a stenotic cervix. The uterus was slightly enlarged and irregular consistent with her known fibroids. The cavity sounded to 9 cm. The majority of the cavity was atrophic, but there were multiple polyps in the left anterior and lateral fundus. DESCRIPTION OF PROCEDURE: The patient was prepped and draped in the dorsal lithotomy position. A weighted speculum was placed. The anterior lip of the cervix was visualized and grasped with a single-tooth tenaculum. An attempt was made to dilate the cervix, but this was unsuccessful. A 2nd tenaculum was placed on the posterior lip of the cervix and Os Finders were used and the cervix could be dilated. Following this, the uterus was sounded to 9 cm. The endocervical canal was then dilated to #8 dilator. The MyoSure PATIENT NAME: BRIAN MELENDEZ OPERATIVE REPORT DATE OF : 40 REPORT #: [id number] PHYSICIAN: ALMA OCHOA MD PCP: JOEY ZAIDI MD REPORT IS CONFIDENTIAL AND NOT TO BE RELEASED WITHOUT AUTHORIZATION [facility] [address] [place], [place] [address] Draft device was placed and the cavity evaluated. The majority of the cavity was atrophic, but there were multiple polyps in the left anterior and lateral fundus. Following this, the MyoSure Lite was introduced and these polyps were resected. The view became progressively more difficult with some bloodiness within the cavity and MyoSure device was removed and D and C was done with removal of more polyps. Following this, the cavity was re-evaluated. There still appeared to be a small amount of polyp remaining, and this was resected using the MyoSure Lite. Following this, the procedure was terminated with removal of the instruments. The tenaculum was removed and there was some bleeding from the right hand tenaculum site which did not respond to pressure and a [id number] suture of 0 chromic was placed with good hemostasis noted. All sponge and needle counts were correct. She tolerated the procedure well and was taken to the recovery room in good condition. MD DON Irwin/MELBA /[id number] cc: MD Smita Millard MD Kevin R Andrews, MD Copies: FABIOLA FELIPE MD,SMITA ZAIDI,JOEY Caldera MD ~ PATIENT NAME: BRIAN MELENDEZ OPERATIVE REPORT DATE OF : 40 REPORT #: [id number] PHYSICIAN: ALMA OCHOA MD PCP: JOEY ZAIDI MD REPORT IS CONFIDENTIAL AND NOT TO BE RELEASED WITHOUT AUTHORIZATION
[~2021-02-14 05:45] MED LIST changes: +ARIMIDEX1 MG PO; +BENADRYL25 MG PO; +BIOTIN5 M1 PO; +CINNAMON500 MG PO; +SUDOGEST30 MG PO; +VITAMIN B-121000 MCG PO; +VITAMIN D325 MCG PO
--- NOTE | 2021-02-18 15:55 | PATH ---
[facility] [address] [place], [place] [address] Signed SPECIMEN(S): A ENDOMETRIAL POLYPS AND CURETTINGS SPECIMEN SOURCE: A. ENDOMETRIAL POLYPS AND CURETTINGS CLINICAL HISTORY: Endometrial mass. Hysteroscopy with DC. FINAL PATHOLOGIC DIAGNOSIS: Endometrial polyps, polypectomy and curettage: - Fragments of high-grade carcinoma, favor serous carcinoma; see comment. COMMENT: Histologic sections show some residual inactive endometrium and abundant neoplastic tissue. The cells of interest show vaguely glandular morphology with prominent clear cell change. High-grade features are present including nuclear pleomorphism, necrosis, and significantly increased mitotic figures. Many papillary projections are also appreciated. Properly controlled immunohistochemical stains were performed on block A2. There is strong and diffuse positivity within tumor cells for p53 and p16. Some scattered staining with Napsin A is also noted. WT-1 is negative. 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 As part of [facility]' Quality Improvement Program, this case was reviewed by another member of our pathology staff. A diagnostic alert was initiated by Dr. Kebede on 02/18/2021. DDF:AMB:cml:C1NR GROSS DESCRIPTION: The specimen, labeled "PL, A," and designated on the requisition "endometrial polyps and curettings," is received in formalin and consists of multiple fragments of pink-lemus to hemorrhagic soft tissue (5.0 x 2.5 x 0.5 cm in aggregate). The specimen is submitted entirely in cassettes (A1-A3). AC (under the direct supervision of a pathologist) The Gross Description was prepared using a voice recognition system. The report was reviewed for accuracy; however, sound-alike word errors, addition and/or deletions may occur. If there is any question about this report, please contact Client Services. PATIENT NAME: BRIAN MELENDEZ PATHOLOGY DATE OF : 40 REPORT #: [id number] PHYSICIAN: JOVANA PATHOLOGY PCP: JOEY ZAIDI MD REPORT IS CONFIDENTIAL AND NOT TO BE RELEASED WITHOUT AUTHORIZATION [facility] [address] [place], [place] [address] Signed ADDITIONAL NOTES: Immunohistochemical and/or in situ hybridization studies were performed on this case with the appropriate positive controls that react as expected. This test was developed and its performance characteristics determined by [facility]. It has not been cleared or approved by the U.S. Food and Drug Administration. The FDA has determined that such clearance or approval is not necessary. This test is used for clinical purposes. It should not be regarded as investigational or for research. [facility] is certified under the Clinical Laboratory Improvement Amendments of 1988 (CLIA) as qualified to perform high complexity clinical laboratory testing. This assay has not been validated for specimens that have been decalcified. PERFORMING LABORATORY: The technical component was performed by [facility], [address] [place] [id number] (Aircraft Engine Mechanic Supervisor: Rosanna Arciniega MD; CLIA# [id number]). Professional interpretation [facility], [address] [address] (CLIA# [id number]). Diagnostician: Noah Kebede DO Pathologist Electronically Signed 02/18/2021 Copies: ~ PATIENT NAME: NORABRIAN ELISHA PATHOLOGY DATE OF : 40 REPORT #: [id number] PHYSICIAN: JOVANA SHOOK PCP: JOEY ZAIDI MD REPORT IS CONFIDENTIAL AND NOT TO BE RELEASED WITHOUT AUTHORIZATION
== END 2021-02-14 09:12 | disposition home or self-care (01) ==
LOC: DS 05:45
PROVIDERS: ATTEND Obstetrics & Gynecology
PROC: 0UB98ZX Excision of Uterus, Via Natural or Artificial Opening Endoscopic, Diagnostic (ICD-10-PCS; principal; 2021-02-14 06:45)
DX: C54.1 Malignant neoplasm of endometrium (principal); N88.2 Stricture and stenosis of cervix uteri
CPT/HCPCS: 00952; J0690; J1644; J2704; J3010; J7121